=== PATIENT | male | born 1960 | race Two or more races ===

== ENCOUNTER 2018-02-15 06:46 | Day surgery (SDC) | payer OTHER | END 2018-02-15 13:40 | disposition home or self-care (01) | LOC: AMB-ENDOS 06:46 | DX: D12.2 Benign neoplasm of ascending colon (principal); K63.5 Polyp of colon; Z12.11 Encounter for screening for malignant neoplasm of colon ==

== ENCOUNTER 2019-12-19 06:37 | Day surgery (SDC) | payer OTHER | END 2019-12-19 11:10 | disposition home or self-care (01) | LOC: AMB-ENDOS 06:37 | PROVIDERS: ATTEND Surgery | DX: K62.89 Other specified diseases of anus and rectum (principal); Z20.828 Contact with and (suspected) exposure to other viral communicable diseases ==